=== PATIENT | male | born 1965 | race Caucasian/White ===

== ENCOUNTER 2018-03-15 19:38 | Emergency (ER) | payer OTHER | END 2018-03-15 22:11 | disposition home or self-care (01) | LOC: FTE 19:38 → E/R 22:11 | DX: R42 Dizziness and giddiness (principal); R40.2142 Coma scale, eyes open, spontaneous, at arrival to emergency department; R40.2362 Coma scale, best motor response, obeys commands, at arrival to emergency department; R40.2252 Coma scale, best verbal response, oriented, at arrival to emergency department; H93.19 Tinnitus, unspecified ear | CPT/HCPCS: 71046; 99283-25 ==